=== PATIENT | male | born 1975 | race Two or more races ===

== ENCOUNTER 2018-08-30 23:02 | Emergency (ER) | payer SELFPAY ==
[~2018-08-30] VITALS: Ht 180.3 cm; Wt 125.2 kg
[2018-08-30 23:10] VITALS: Ht 180.3 cm; Wt 125.2 kg
[2018-08-31 01:32] VITALS: BP 149/99
== END 2018-08-31 01:32 | disposition home or self-care (01) ==
LOC: ED 23:02
DX: S20.219A Contusion of unspecified front wall of thorax, initial encounter (principal); S60.511A Abrasion of right hand, initial encounter; I10 Essential (primary) hypertension; V49.9XXA Car occupant (driver) (passenger) injured in unspecified traffic accident, initial encounter; Y93.I9 Activity, other involving external motion; Y92.413 State road as the place of occurrence of the external cause; Y99.8 Other external cause status
CPT/HCPCS: 90715; J1885